=== PATIENT | male | born 1970 | race African-American/Black ===

== ENCOUNTER 2025-07-01 17:46 | Emergency (ER) | payer BC ==
[2025-07-01 18:10] VITALS: BP 143/75; PULSE 80; RESP 16; TEMP 97.9; BMI 18.1
[2025-07-01] MEDS ORDERED: ACETAMINOPHEN INJECTION 100 ML ONE (18:18)
[2025-07-01] MEDS ORDERED: FAMOTIDINE 20 MG/50 ML IVPB 20 MG/50 ML MG IVPB ONE (18:18)
[2025-07-01] MEDS ORDERED: ONDANSETRON 4 MG/2 ML VIAL ONE (18:18)
[2025-07-01] MEDS ORDERED: MAG HYDROX/AL HYDROX/SIMETH 30 ML UNIT-DOSE CUP ONE (18:18)
[2025-07-01 18:27] LABS: ABSOLUTE IMMATURE GRANULOCYTES 0.01 x10^3/uL (0.0-0.031); BASOPHILS # 0.02 x10^3/uL (0.01-0.08); EOSINOPHIL % 9.8 % (0.8-7.0); EOSINOPHILS # 0.44 x10^3/uL (0.04-0.54); MCHC 30.8 g/dl (32.3-36.5); MEAN CELL VOLUME 86.1 fl (79.0-92.2); MEAN PLT VOLUME 10.5 fl (9.4-12.4); MONOCYTE # 0.49 x10^3/uL (0.30-0.82); MONOCYTE % 10.9 % (5.3-12.2); RDW 13.6 % (12.2-16.1)
[2025-07-01] MEDS: FAMOTIDINE 20 MG/50 ML IVPB 20 MG/50 ML MG IVPB ONE (18:29)
[2025-07-01] MEDS: ONDANSETRON 4 MG/2 ML VIAL IVPB ONE (18:29)
[2025-07-01] MEDS: MAG HYDROX/AL HYDROX/SIMETH 30 ML UNIT-DOSE CUP PO ONE (18:29)
[2025-07-01] MEDS: ACETAMINOPHEN 1000 MG/100 ML BAG IVPB ONE (18:29)
[2025-07-01 18:57] LABS: GLUCOSE,RANDOM 131.0 mg/dL (74-106)
[2025-07-01 18:58] LABS: CO2 26.0 mmol/L (21-32); TOT PROT 6.9 g/dl (6.4-8.2)
[2025-07-01 19:00] LABS: ALK PHOS 55.0 U/L (40-150)
[2025-07-01 19:02] LABS: COCAINE, UR NEGATIVE (NEGATIVE); OPIATES, URI POSITIVE (NEGATIVE); PHENCYCLIDINE,URINE POSITIVE (NEGATIVE); URINE AMPHETAMINES NEGATIVE (NEGATIVE); URINE BARBITURATES NEGATIVE (NEGATIVE)
[2025-07-01 19:03] LABS: METHADONE, UR NEGATIVE (NEGATIVE); URINE BENZODIAZEPINES NEGATIVE (NEGATIVE)
[2025-07-01 19:03] LABS: CREATININE 0.77 mg/dL (0.55-1.3); SGOT/AST 66.0 U/L (5-34); SGPT/ALT 56.0 U/L (0-55)
[2025-07-01 19:08] LABS: URINE APPEARANCE CLEAR; URINE BILIRUBIN NEGATIVE (NEGATIVE); URINE COLOR YELLOW; URINE GLUCOSE (UA) NEGATIVE (NEGATIVE); URINE KETONE NEGATIVE (NEGATIVE); URINE LEUK ESTERASE NEGATIVE (NEGATIVE); URINE NITRITE NEGATIVE (NEGATIVE); URINE PROTEIN NEGATIVE (NEGATIVE); URINE UROBILINOGEN 1.0 mg/dL (0.2-1.0)
[2025-07-01] MEDS ORDERED: KETOROLAC TROMETHAMINE 15 MG/ML VIAL ONE (20:20)
[2025-07-01] MEDS: KETOROLAC TROMETHAMINE 15 MG/ML VIAL IVPUSH ONE (20:36)
== END 2025-07-01 21:27 | disposition home or self-care (01) ==
LOC: JER 17:46
PROC: 3E033GC Introduction of Other Therapeutic Substance into Peripheral Vein, Percutaneous Approach (ICD-10-PCS; principal; 2025-07-01)
PROC: 3E033GC Introduction of Other Therapeutic Substance into Peripheral Vein, Percutaneous Approach (ICD-10-PCS; 2025-07-01)
PROC: 3E033NZ Introduction of Analgesics, Hypnotics, Sedatives into Peripheral Vein, Percutaneous Approach (ICD-10-PCS; 2025-07-01)
PROC: 3E0333Z Introduction of Anti-inflammatory into Peripheral Vein, Percutaneous Approach (ICD-10-PCS; 2025-07-01)
DX: R45.851 Suicidal ideations (principal); R10.13 Epigastric pain; R63.8 Other symptoms and signs concerning food and fluid intake; R11.0 Nausea
CPT/HCPCS: 36415; 71045-TC-FY; 74177-TC; 80053; 80307; 81003; 83690; 84484; 85025; 87086; 96365; 96375; 99285-25; Q9967